=== PATIENT | male | born 1995 ===

== ENCOUNTER 2017-05-31 19:21 | Emergency (ER) | payer OTHER ==
[~2017-05-31] VITALS: Ht 177.8 cm; Wt 114.4 kg
[2017-05-31 19:25] VITALS: TEMP 37; Ht 177.8 cm; Wt 114.4 kg
[2017-05-31 20:07] LABS: BASO % 0.3 %; BASO ABS # 0.03 K/uL (0-0.2); HEMATOCRIT 48.6 % (42-52); HEMOGLOBIN 17.1 g/dL (14.0-18.0); IG# 0.03 K/uL (0.00-0.02); LYMPH % 21.9 %; LYMPH ABS # 2.12 K/uL (1.2-3.4); MEAN CELL VOLUME 86.6 fL (80-100); MEAN CORPUSCULAR HEMOGLOBIN 30.5 pg (25-34); MEAN CORPUSCULAR HGB CONC 35.2 g/dl (32-36); MEAN PLATELET VOLUME 11.6 fL (7.4-10.4); MONO % 7.7 %; MONO ABS # 0.74 K/uL (0.11-0.59); NEUT % 68.8 %; NEUT ABS # 6.64 K/uL (1.4-6.5); PLATELET COUNT 295 K/uL (130-400); RED CELL DISTRIBUTION WIDTH SD 41.3 fL (36.4-46.3); WHITE BLOOD COUNT 9.66 K/uL (4.8-10.8)
[2017-05-31 20:26] LABS: ALBUMIN 4.6 gm/dl (3.4-5.0); ALT/SGPT 47 U/L (12-78); AST/SGOT 23 U/L (15-37); BLOOD UREA NITROGEN 11 mg/dl (7-18); CALCIUM 9.1 mg/dl (8.5-10.1); CARBON DIOXIDE 27 mmol/L (21-32); CREATININE 1.21 mg/dl (0.60-1.40); GLUCOSE 89 mg/dl (70-99); POTASSIUM 3.8 mmol/L (3.5-5.1); SODIUM 138 mmol/L (136-145)
[2017-05-31 20:37] LABS: ALKALINE PHOSPHATASE 81 U/L (45-117); TOTAL PROTEIN 8.5 gm/dl (6.4-8.2)
[2017-05-31 23:46] VITALS: BP 164/80; PULSE 98; O2SAT 97
--- NOTE | 2017-06-01 00:21 | EMERGENCY ROOM VISIT NOTE ---
History Report prepared by Yariel: Nancy Plasencia Under the Supervision of: Dr. Shiraz Alatorre D.O. First contact with patient: 19:26 Chief Complaint: MENTAL HEALTH EVALUATION Stated Complaint: SUICIDAL IDEATION History of Present Illness The patient is a 21 year old male who presents to the Emergency Room with complaints of worsening depression starting 1 month ago. The patient does not have a history of depression or anxiety and is not on any medications. Over the past month, he has felt depressed. He is having some thoughts of hurting himself , but does not have a plan. He notes that he would never attempt this. He denies any previous suicide attempts. He states that is feels confused about everything. He feels isolated from his family who lives in [facility]. He is a freshman at [employer]. He is not having any auditory or visual hallucinations. He has experienced some headaches and difficulty breathing. He is eating and drinking. He is able to take care of himself. He is an controls engineer student. Source of History: patient Onset: 1 month ago Position: other (mental health) Quality: other (depression) Timing: worsening Associated Symptoms: + headache, + SOB Note: Pt reports thoughts of hurting himself. Review of Systems See HPI for pertinent positives & negatives. A total of 10 systems reviewed and were otherwise negative. Past Medical & Surgical No history of depression or anxiety. Family History No pertinent family history stated. Social History Smoking Status: Never Smoker Occupation Status: [employer] student Physical Exam Vital Signs Date Time Temp Pulse Resp B/P (MAP) Pulse Ox O2 Delivery O2 Flow Rate FiO2 05/31/17 23:46 98 16 164/80 97 05/31/17 22:56 92 18 116/70 98 Room Air 05/31/17 19:25 37.0 92 20 136/78 97 Room Air Physical Exam GENERAL: Sitting up in bed, tearful, disheveled, nontoxic EYE EXAM: conjunctiva injected. OROPHARYNX: no exudate, no erythema, lips, buccal mucosa, and tongue normal and mucous membranes are moist NECK: supple, no nuchal rigidity, no adenopathy, non-tender LUNGS: Clear to auscultation. Normal chest wall mechanics HEART: no murmurs, S1 normal and S2 normal ABDOMEN: abdomen soft, non-tender, normo-active bowel sounds, no masses, no rebound or guarding. BACK: Back is symmetrical on inspection and there is no deformity, no midline tenderness, no CVA tenderness. SKIN: no rashes and no bruising UPPER EXTREMITIES: upper extremities are grossly normal. LOWER EXTREMITIES: No pitting edema. NEURO EXAM: Normal sensorium, cranial nerves II-XII grossly intact, normal speech, no gross weakness of arms, no gross weakness of legs. PSYCH: Admits to suicidal thoughts without plan. No HI. No auditory or visual hallucinations. Medical Decision & Procedures Laboratory Results 05/31/17 19:47 Red Blood Count 5.61, Mean Corpuscular Volume 86.6, Mean Corpuscular Hemoglobin 30.5, Mean Corpuscular Hemoglobin Concent 35.2, Mean Platelet Volume 11.6, Neutrophils (%) (Auto) 68.8, Lymphocytes (%) (Auto) 21.9, Monocytes (%) (Auto) 7.7, Eosinophils (%) (Auto) 1.0, Basophils (%) (Auto) 0.3, Neutrophils # (Auto) 6.64, Lymphocytes # (Auto) 2.12, Monocytes # (Auto) 0.74, Eosinophils # (Auto) 0.10, Basophils # (Auto) 0.03 05/31/17 19:47 Test 05/31/17 19:44 05/31/17 19:47 Urine Color YELLOW Urine Appearance CLEAR (CLEAR) Urine pH 5.5 (4.5-7.5) Urine Specific [place] 1.026 (1.000-1.030) Urine Protein NEG (NEG) Urine Glucose (UA) NEG (NEG) Urine Ketones TRACE (NEG) Urine Occult Blood TRACE (NEG) Urine Nitrite NEG (NEG) Urine Bilirubin NEG (NEG) Urine Urobilinogen NEG (NEG) Urine Leukocyte Esterase NEG (NEG) Urine WBC (Auto) 1-5 /hpf (0-5) Urine RBC (Auto) 0-4 /hpf (0-4) Urine Hyaline Casts (Auto) 1-5 /lpf (0-5) Urine Epithelial Cells (Auto) 0-5 /lpf (0-5) Urine Bacteria (Auto) NEG (NEG) Urine Opiates Screen NEG (NEG) Urine Methadone, Qualitative NEG (NEG) Urine Barbiturates NEG (NEG) Urine Phencyclidine (PCP) Level NEG (NEG) Ur Amphetamine/Methamphetamine NEG (NEG) MDMA (Ecstasy) Screen NEG (NEG) Urine Benzodiazepines Screen NEG (NEG) Urine Cocaine Metabolite NEG (NEG) Urine Marijuana (THC) NEG (NEG) White Blood Count 9.66 K/uL (4.8-10.8) Red Blood Count 5.61 M/uL (4.7-6.1) Hemoglobin 17.1 g/dL (14.0-18.0) Hematocrit 48.6 % (42-52) Mean Corpuscular Volume 86.6 fL (80-100) Mean Corpuscular Hemoglobin 30.5 pg (25-34) Mean Corpuscular Hemoglobin Concent 35.2 g/dl (32-36) Platelet Count 295 K/uL (130-400) Mean Platelet Volume 11.6 fL (7.4-10.4) Neutrophils (%) (Auto) 68.8 % Lymphocytes (%) (Auto) 21.9 % Monocytes (%) (Auto) 7.7 % Eosinophils (%) (Auto) 1.0 % Basophils (%) (Auto) 0.3 % Neutrophils # (Auto) 6.64 K/uL (1.4-6.5) Lymphocytes # (Auto) 2.12 K/uL (1.2-3.4) Monocytes # (Auto) 0.74 K/uL (0.11-0.59) Eosinophils # (Auto) 0.10 K/uL (0-0.5) Basophils # (Auto) 0.03 K/uL (0-0.2) RDW Standard Deviation 41.3 fL (36.4-46.3) RDW Coefficient of Variation 13.0 % (11.5-14.5) Immature Granulocyte % (Auto) 0.3 % Immature Granulocyte # (Auto) 0.03 K/uL (0.00-0.02) Anion Gap 8.0 mmol/L (3-11) Est Creatinine Clear Calc Drug Dose 124.4 ml/min Estimated GFR () 100.0 Estimated GFR (Non- 86.3 BUN/Creatinine Ratio 9.2 (10-20) Calcium Level 9.1 mg/dl (8.5-10.1) Total Bilirubin 0.3 mg/dl (0.2-1) Direct Bilirubin < 0.1 mg/dl (0-0.2) Aspartate Amino Transf (AST/SGOT) 23 U/L (15-37) Alanine Aminotransferase (ALT/SGPT) 47 U/L (12-78) Alkaline Phosphatase 81 U/L (45-117) Total Protein 8.5 gm/dl (6.4-8.2) Albumin 4.6 gm/dl (3.4-5.0) Thyroid Stimulating Hormone (TSH) 3.600 uIu/ml (0.300-4.500) Ethyl Alcohol mg/dL < 3.0 mg/dl (0-3) Laboratory results per my review. ED Course ED COURSE: Vital signs were reviewed and showed normal vitals. The patients medical record was reviewed The above diagnostic studies were performed and reviewed. ED treatments and interventions as stated above. 1929: The patient was evaluated in room A6. A complete history and physical examination was performed. 5: Upon reevaluation, the patient is resting comfortably. I discussed my findings with the patient and he understands and agrees with the treatment plan. Based on the patients age, coexisting illnesses, exam and lab findings the decision to treat as an outpatient was made. The patient remained stable while under my care. The patient appeared well at the time of discharge. Medical Decision Differential diagnosis: Etiologies such as mood disorder, infection, hypoglycemia, electrolyte abnormalities, cardiac sources, intracerebral event, toxicologic, neurologic, as well as others were entertained. Patient is a 21-year-old male that presents the ER depressed having intermittent suicidal thoughts over the course the past month. He denies any suicidal plans or auditory/visual hallucinations. No previous suicide attempts. He notes that he came here as he is extremely lonely and to talk about how he feels. He is very tearful. Labs were obtained and CBC along with BMP, LFTs, bilirubin TSH was unremarkable. Tox, UA and alcohol was negative. I had extensive conversation with this gentleman as well as her psychiatric reproductive healthcare assistant Aiden mendez. Patient denies any plan to kill himself. He does not want to come in patient at this time. He does have good insight. 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 He is going back to [place] in 2 weeks. He is extremely happy to see his parents as he does feel extremely isolated here. He is eating and drinking and taking care of himself. He notes that study and does occupy his mind. Again he denies any plan of suicide. We have nothing at this point to hold him on and he does wants to go home. After prolonged conversation with the patient and Aiden patient was discharged. He would not allow us to close parents as he noted he wanted to discuss this with them when he gets home. Patient was agreeable to having further call him tomorrow and have S notified who he will also follow up with. Discussed with Pt concerning signs and symptoms to watch out for. Pt was instructed to follow up with their PCP and discussed with the patient their option to return to the ED at anytime for persistent or worsening symptoms. The appropriate anticipatory guidance and out-patient management, including indications for return to the emergency department, were explained at length to the patient and understood. Medication Reconcilliation Current Medication List: was personally reviewed by me Blood Pressure Screening Patient's blood pressure: Normal blood pressure Blood pressure disposition: Did not require urgent referral Impression Primary Impression: Depression Scribe Attestation The scribe's documentation has been prepared under my direction and personally reviewed by me in its entirety. I confirm that the note above accurately reflects all work, treatment, procedures, and medical decision making performed by me. Departure Information Dispostion Home / Self-Care Referrals [facility] (PCP) Forms HOME CARE DOCUMENTATION FORM, IMPORTANT VISIT INFORMATION Patient Instructions ED Depression, My [facility] Additional Instructions Please follow up with your primary care doctor or if you are a student, [facility] with in the next 24 hours. Any worsening of your symptoms, please return to the ED immediately. This includes any thoughts of self-harm, thoughts of harming anyone else, hearing any voices, seeing anyone else out there, or any other concerning signs or symptoms from your standpoint. Again any other thoughts of self-harm please return immediately to the ER. Problem Qualifiers Primary Impression: Depression Depression Type: unspecified Qualified Codes: F32.9 - Major depressive disorder, single episode, unspecified
== END 2017-05-31 23:41 | disposition home or self-care (01) ==
LOC: C.EDB 19:23 → C.EDA 23:41
DX: F32.9 Major depressive disorder, single episode, unspecified (principal)

== ENCOUNTER 2017-06-02 14:31 | Emergency (ER) | payer OTHER ==
[2017-06-02 14:33] VITALS: TEMP 36.7
[2017-06-02 17:56] VITALS: BP 131/65; PULSE 80; O2SAT 97
--- NOTE | 2017-06-02 18:50 | EMERGENCY ROOM VISIT NOTE ---
History Report prepared by Yariel: Nancy Plasencia Under the Supervision of: Dr. Yoel Christie M.D. First contact with patient: 14:38 Chief Complaint: MENTAL HEALTH EVALUATION Stated Complaint: DEPRESSION History of Present Illness The patient is a 21 year old male who presents to the Emergency Room with complaints of worsening depression starting 1 year ago. His depression has worsened recently. The patient was seen in the ED 2 days ago. He was recommended inpatient psychiatric treatment, but he opted to go home because he had not yet spoken with his parents. He has now spoken with his parents and discovered that his mother has a history of depression. He returned to the ED today because he would like to receive inpatient treatment. He has not been diagnosed with depression in the past and has never been on any medications for depression. He has been thinking about , but does not have a plan to harm himself. He thinks that his depression is from having social anxiety. He is currently a student at [employer]. He is doing well and sleeping normally. He sometimes does not eat. He denies having any relationship problems. He denies any medical problems and does not take any medications. He denies any drug or alcohol use. Source of History: patient Onset: 1 year ago Position: other (mental health) Quality: other (depression) Timing: worsening Modifying Factors (Worsening): other (social anxiety) Note: Pt reports thoughts of without plan. Review of Systems See HPI for pertinent positives & negatives. A total of 10 systems reviewed and were otherwise negative. Past Medical & Surgical Medical Problems: (1) No chronic problems Family History Depression Social History Smoking Status: Never Smoker Occupation Status: [employer] student Current/Historical Medications No Active Prescriptions or Reported Meds Allergies Coded Allergies: No Known Allergies (Unverified , 06/02/17) Physical Exam Vital Signs Date Time Temp Pulse Resp B/P (MAP) Pulse Ox O2 Delivery O2 Flow Rate FiO2 06/02/17 17:56 80 16 131/65 97 Room Air 06/02/17 14:33 36.7 73 16 121/75 98 Room Air Physical Exam GENERAL: Patient is in no acute distress. HEENT: No acute trauma, normocephalic atraumatic, mucous membranes moist, no nasal congestion, no scleral icterus. NECK: No stridor, no adenopathy, no meningismus, trachea is midline. LUNGS: Clear to auscultation bilaterally, no wheeze, no rhonchi, breath sounds equal. HEART: Without murmurs gallops or rubs, regular rate and rhythm. ABDOMEN: Soft, nontender, bowel sounds positive, no hernias, no peritonitis. EXTREMITIES: No cyanosis or edema, full range of motion of all the joints without pain or difficulty, no signs for acute trauma. NEUROLOGIC: Oriented x 3, no acute motor or sensory deficits, no focal weakness. SKIN: No rash, no jaundice, no diaphoresis. PSYCH: Flat affect. Cooperative and voluntary. Admits to suicidal ideation with no plan. Medical Decision & Procedures Laboratory Results Test 06/02/17 14:55 Urine Color YELLOW Urine Appearance CLEAR (CLEAR) Urine pH 6.5 (4.5-7.5) Urine Specific [place] 1.016 (1.000-1.030) Urine Protein NEG (NEG) Urine Glucose (UA) NEG (NEG) Urine Ketones NEG (NEG) Urine Occult Blood TRACE (NEG) Urine Nitrite NEG (NEG) Urine Bilirubin NEG (NEG) Urine Urobilinogen NEG (NEG) Urine Leukocyte Esterase NEG (NEG) Urine WBC (Auto) 1-5 /hpf (0-5) Urine RBC (Auto) 0-4 /hpf (0-4) Urine Hyaline Casts (Auto) 0 /lpf (0-5) Urine Epithelial Cells (Auto) 0-5 /lpf (0-5) Urine Bacteria (Auto) NEG (NEG) Urine Opiates Screen NEG (NEG) Urine Methadone, Qualitative NEG (NEG) Urine Barbiturates NEG (NEG) Urine Phencyclidine (PCP) Level NEG (NEG) Ur Amphetamine/Methamphetamine NEG (NEG) MDMA (Ecstasy) Screen NEG (NEG) Urine Benzodiazepines Screen NEG (NEG) Urine Cocaine Metabolite NEG (NEG) Urine Marijuana (THC) NEG (NEG) Laboratory results reviewed by me. ED Course 1440: The patient was evaluated in room A7. A complete history and physical exam was performed. 1743: The patient has been evaluated by the psych case maker. She does not think the patient requires inpatient psychiatric care. The patient is going back home to [facility] in 2 weeks. He will follow up with [facility] in the meantime for potential depression medications. 1749: Reevaluated the patient. Discussed results and discharge instructions: He verbalized understanding and agreement. The patient is ready for discharge. Medical Decision Differential diagnoses considered include suicidal ideation, drug or alcohol abuse, thyroid disorder, depression, situational depression, anxiety. Patient presents with depression. He had been here a few days ago and felt medically clear. A repeat urinalysis was done showing no signs of infection. Urine tox was negative. The patient was felt medically clear for a psychiatric evaluation by the case maker. The patient was not actively suicidal. He did not meet criteria for an inpatient stay. He decided that he did not want to stay but wanted outpatient resources. These are being arranged. Patient is to return for any worsening suicidality. He will return if feeling overwhelmed or increasingly depressed. The patient did a verbally contract for safety. He was discharged in stable condition. He is going to follow-up as an outpatient as suggested. Medication Reconcilliation Current Medication List: was personally reviewed by me Blood Pressure Screening Patient's blood pressure: Elevated blood pressure Blood pressure disposition: Elevated BP felt to be situational Impression Primary Impression: Depression Additional Impression: Suicidal thoughts Scribe Attestation The scribe's documentation has been prepared under my direction and personally reviewed by me in its entirety. I confirm that the note above accurately reflects all work, treatment, procedures, and medical decision making performed by me. Departure Information Dispostion Home / Self-Care Prescriptions No Active Prescriptions or Reported Meds Referrals [facility] (PCP) Forms HOME CARE DOCUMENTATION FORM, IMPORTANT VISIT INFORMATION Patient Instructions My [facility] Additional Instructions return if worsening return for suicidal thoughts see [facility] and [facility]---[facility] could see you for antidepression medications Problem Qualifiers
== END 2017-06-02 18:03 | disposition home or self-care (01) ==
LOC: C.EDB 14:32 → C.EDA 18:03
DX: F32.9 Major depressive disorder, single episode, unspecified (principal); R45.851 Suicidal ideations; R03.0 Elevated blood-pressure reading, without diagnosis of hypertension; Z81.8 Family history of other mental and behavioral disorders